=== PATIENT | male | born 1980 | race Caucasian/White ===

== ENCOUNTER 2016-12-15 21:39 | Emergency (ER) | payer BC ==
[~2016-12-15 21:39] MED LIST: Lidocaine 1% with EPINEPHrine 1:100,000 20 ML MDV INFILT ONE
[2016-12-15] MEDS ORDERED: Diphtheria,Pertussis(Acell),Tetanus Vaccine 0.5 ML SDV IM ONE (21:47)
[2016-12-15] MEDS ORDERED: ceFAZolin 2 GM in Sodium Chloride 0.9% 100 ML IV ONE (22:15)
[2016-12-15] MEDS ORDERED: ceFAZolin 1 GM Vial ONE (22:19)
[2016-12-15] MEDS ORDERED: Sodium Chloride 0.9% 10 ML Syringe FLUSH PRN (22:22)
[2016-12-16] MEDS ORDERED: Acetaminophen/HYDROcodone 325-5 MG Tab PO ONE (00:27)
[2016-12-16 00:49] VITALS: BP 113/42
--- NOTE | 2016-12-19 10:01 | ER ---
DATE SEEN: 12/15/2016 TIME SEEN: The patient was seen at 2145 hours. CHIEF COMPLAINT: Laceration to sacrum. 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 The glass table broke and a triangle-shaped large shard, 20 inches long and 8 inches wide at the base, went into the skin and tunneled 12 + inches under the skin parallel to his spine from the L5 level to L2 level and resulted in a 25 cm long laceration that bled profusely. Immediate pressure on the wound cavity slowed the bleeding. PAST MEDICAL HISTORY: No diabetes, heart disease, high blood pressure, surgery, other illnesses, medications, or allergies. Otherwise, the patient is healthy. HABITS: Smokes 1/2 to 1 pack of cigarettes per day for the last 10 years. Alcohol rarely and does not use street drugs. REVIEW OF SYSTEMS: Negative. PHYSICAL EXAMINATION: VITAL SIGNS: Blood pressure 121/62, heart rate 86, respirations 20, oxygen saturation 100%, and temperature 36.6 degrees centigrade. GENERAL: Immediate persistent pressure was placed on the wound site.The patient was laid on his side. The patient's wound was cleansed several times with several glove changes and then 1% lidocaine with 1:1000 epinephrine infiltrated into the wound. Once analgesia was obtained, the wound was again washed and flushed with 3 liters normal saline. The flushing released large clots, which came from deep within the wound cavity. The patient has no compromise in sensation. His circulation is appropriate. He moves upper and lower extremities appropriately. He has no problems with pain in his legs. The wound was again aggressively lavaged and cleansed. Several irregular edges noted and excised with #10 blade scalpel. The wound then reapproximated with 10 stitches of interrupted subcutanous 3-0 Vicryl. Dermis was approximated with 14 stitches of interrupted 3-0 Ethilon. Before the wound was closed, a Brenda drain was placed 8 inches into the wound cavity and stitched to the sound edge. With constant external pressure for 30 minutes on wound cavity, no further bleeding was noted. A very firm ABD dressings were taped in place and covered by a tight 6-inch Marco wrapped around his lower torso to keep constant pressure on this wound. The patient not to return to work until he is cleared by a doctor. Follow up with a doctor in 5 days. At that time, the Brenda drain (which is about 6 to 8 inches into the proximal wound) needs to be removed. The patient is given 2 g of Ancef IV and he is dismissed with Keflex 500 mg q.i.d., 40 tablets, and a prescription for Florastor 250 mg one tablet b.i.d., 60 tablets. If any sign of redness, infection, increased pain, increased warmth, fever, or chills, to see the doctor immediately. The patient has Tdap given. No complications. ASSESSMENT: 1. A 25 cm laceration, two-layered closure. 2. The patient is a smoker. 3. Tetanus shot given. 4. Prophylactic antibiotics given. BLOOD LOSS: 200 mL. /[id number] DYLAN/SUE QURESHI
== END 2016-12-16 00:45 | disposition home or self-care (01) ==
LOC: FB.ED 21:39
DX: S31.010A Laceration without foreign body of lower back and pelvis without penetration into retroperitoneum, initial encounter (principal); F17.210 Nicotine dependence, cigarettes, uncomplicated; Z23 Encounter for immunization; W25.XXXA Contact with sharp glass, initial encounter
CPT/HCPCS: 12046; 90471; 90715; 96365; 96372; 99283; A4217; A9270; J0690; J7030; J7050; 12002